=== PATIENT | female | born 1940 | race American Indian/Alaskan Native ===

== ENCOUNTER 2020-09-20 17:49 | Observation (INO) | payer MEDICARE ==
--- NOTE | 2020-09-20 20:47 | Emergency Department Report ---
ED Neuro Deficit HPI - General Chief Complaint: Dizziness Stated Complaint: DIZZINESS Time Seen by Provider: 09/20/20 20:25 Source: patient Mode of arrival: Ambulatory Limitations: No Limitations - History of Present Illness Initial Comments: Chief complaint: Dizzy HPI: This is an 80-year-old female with history of hypertension and glaucoma who presents with room spinning sensation on Sunday morning. Dizziness has been persistent throughout the day. She has imbalance with walking. She feels as if her neck and head are shaking. When she stands up she feels as if she is going to fall toward the left. No previous history of stroke. During pandemic, patient was evaluated at [facility] for similar symptoms. Due to the commotion of the pandemic, she was unable to obtain the outpatient head CT that was ordered. She felt better after receiving IV fluid therapy. Patient did not take her blood pressure medication on Sunday. She did take her blood pressure medication on yesterday. She took aspirin yesterday after experiencing the room spinning sensation. At time she does not take her blood pressure medications. She is concerned for adverse effect. She does not smoke tobacco. She is retired schoolteacher. She has had mild heada kamari. She denies paralysis or trouble with speech. She denies paresthesias. She denies blurry vision. -: days(s) (Yesterday morning patient awakened with symptoms) Location: ataxia History of same: Yes Place: home Severity: moderate Improves With: none Worsens With: none On Anticoagulants: No Context: other (Patient awakened with symptoms yesterday morning) Associated Symptoms: vertigo, other (Vertigo trouble with walking) - Related Data Allergies/Adverse Reactions: Allergies Allergy/AdvReac Type Severity Reaction Status Date / Time [place] nut Allergy Swelling Verified 09/20/20 18:03 fish derived Allergy Swelling Verified 09/20/20 18:03 ED Review of Systems ROS: Stated complaint: DIZZINESS Other details as noted in HPI Comment: All other systems reviewed and negative Constitutional: denies: fever, malaise Respiratory: denies: cough, shortness of breath Gastrointestinal: denies: abdominal pain, nausea, vomiting Neurological: abnormal gait, vertigo. denies: headache, weakness, numbness, paresthesias, confusion ED Past Medical Hx - Past Medical History Previous Medical History?: Yes Hx Hypertension: Yes Hx Headaches / Migraines: Yes Additional medical history: GLACOMA - Surgical History Past Surgical History?: Yes Additional Surgical History: FINGER - Family History Family history: hypertension, vascular disease (History of CVA among several family members) - Social History Smoking Status: Never Smoker Substance Use Type: None ED Neuro Physical Exam - General Limitations: No Limitations General appearance: alert, in no apparent distress Suspected Stroke: Yes - Head Head exam: Present: atraumatic, normocephalic - Eye Eye exam: Present: normal appearance - ENT ENT exam: Present: mucous membranes moist - Neck Neck exam: Present: normal inspection, full ROM - Respiratory Respiratory exam: Present: normal lung sounds bilaterally. Absent: respiratory distress, wheezes, rales, rhonchi - Cardiovascular Cardiovascular Exam: Present: regular rate, normal rhythm, normal heart sounds. Absent: systolic murmur, diastolic murmur, rubs, gallop - GI/Abdominal GI/Abdominal exam: Present: soft, normal bowel sounds. Absent: distended, tenderness, guarding, rebound - Extremities Exam Extremities exam: Present: normal inspection - Neurological Exam Neurological exam: Present: alert, oriented X3, other (Patient is unable to walk with cane or assistance) - NIHSS Assessment Interval: Baseline 1a. Level of Consciousness: alert/keenly responsive 1b. LOC Questions: answers both correctly 1c. LOC Commands: performs tasks correctly 2. Best Gaze: normal 3. Visual: no visual loss 4. Facial Palsy: normal symmetrical movement 5b. Motor Arm Right: no drift 5a. Motor Arm Left: no drift 6a. Motor Leg Left: no drift 6b. Motor Leg Right: no drift 7. Limb Ataxia: present 2 limbs (Significant dysmetria with [id number]) 8. Sensory: normal 9. Best Language: no aphasia 10. Dysarthria: normal 11. Extinction/Inattention: no abnormality Total Score: 2 Stroke Severity: Minor Stroke - Psychiatric Psychiatric exam: Present: normal affect, normal mood - Skin Skin exam: Present: warm, dry, intact, normal color. Absent: rash ED Course Vital Signs 09/20/20 09/20/20 18:05 20:20 Temperature 99.0 F Pulse Rate 102 H 96 H Respiratory 20 18 Rate Blood Pressure 159/87 Blood Pressure 176/90 [Right] O2 Sat by Pulse 96 99 Oximetry - Lab Data Result diagrams: 09/20/20 20:35 09/20/20 20:35 Lab Results 09/20/20 09/20/20 09/20/20 Range/Units 20:35 20:35 20:35 WBC 12.1 H (4.5-11.0) K/mm3 RBC 4.78 (3.65-5.03) M/mm3 Hgb 13.9 (10.1-14.3) gm/dl Hct 41.3 (30.3-42.9) % MCV 86 (79-97) fl MCH 29 (28-32) pg MCHC 34 (30-34) % RDW 14.4 (13.2-15.2) % Plt Count 188 (140-440) K/mm3 Baso % (Auto) School Standards Coach Lymph # (Auto) School Standards Coach PT 13.4 (12.2-14.9) Sec. INR 1.04 (0.87-1.13) APTT 30.3 (24.2-36.6) Sec. Sodium 137 (137-145) mmol/L Potassium 4.0 (3.6-5.0) mmol/L Chloride 100.6 (98-107) mmol/L Carbon Dioxide 22 (22-30) mmol/L Anion Gap 18 mmol/L BUN 13 (7-17) mg/dL Creatinine 0.8 (0.6-1.2) mg/dL Estimated GFR > 60 ml/min BUN/Creatinine Ratio 16 % Glucose 225 H (65-100) mg/dL Calcium 10.6 H (8.4-10.2) mg/dL Total Bilirubin 0.30 (0.1-1.2) mg/dL AST 18 (5-40) units/L ALT 18 (7-56) units/L Alkaline Phosphatase 81 (35-129) units/L Troponin T < 0.010 (0.00-0.029) ng/mL NT-Pro-B Natriuret Pep (0-900) pg/mL Total Protein 7.4 (6.3-8.2) g/dL Albumin 3.9 (3.9-5) g/dL Albumin/Globulin Ratio 1.1 % 09/20/20 Range/Units 20:35 WBC (4.5-11.0) K/mm3 RBC (3.65-5.03) M/mm3 Hgb (10.1-14.3) gm/dl Hct (30.3-42.9) % MCV (79-97) fl MCH (28-32) pg MCHC (30-34) % RDW (13.2-15.2) % Plt Count (140-440) K/mm3 Baso % (Auto) Lymph # (Auto) PT (12.2-14.9) Sec. INR (0.87-1.13) APTT (24.2-36.6) Sec. Sodium (137-145) mmol/L Potassium (3.6-5.0) mmol/L Chloride (98-107) mmol/L Carbon Dioxide (22-30) mmol/L Anion Gap mmol/L BUN (7-17) mg/dL Creatinine (0.6-1.2) mg/dL Estimated GFR ml/min BUN/Creatinine Ratio % Glucose (65-100) mg/dL Calcium (8.4-10.2) mg/dL Total Bilirubin (0.1-1.2) mg/dL AST (5-40) units/L ALT (7-56) units/L Alkaline Phosphatase (35-129) units/L Troponin T (0.00-0.029) ng/mL NT-Pro-B Natriuret Pep 17.71 (0-900) pg/mL Total Protein (6.3-8.2) g/dL Albumin (3.9-5) g/dL Albumin/Globulin Ratio % - EKG Data -: EKG Interpreted by Sc EKG shows normal: sinus rhythm, axis, intervals, QRS complexes, ST-T waves Rate: normal Interpretation: normal EKG 09/20/20 20:47 EKG obtained 1813 EKG interpreted by vt Normal sinus rhythm normal rate normal axis normal intervals no ST elevation no ST-T signs of ischemia normal EKG - Radiology Data Radiology results: report reviewed Patient Name: RONAK HERRERA Gender: Female Date of : 1940 Referring Provider: SOFÍA NUNN Organization: [facility] Accession Number: [id number] Requested Date: September 20, 2020 20:25 Report Status: Final Requested Procedure: 1 Procedure Description: CT head/brain wo con Modality: CT Findings Reporting MD: Alis Street Dictation Time: September 20, 2020 21:07 Tissue Packer: Not available Career Development Manager Date: NONENHANCED CT SCAN OF THE BRAIN: INDICATION: Stroke symptoms. TECHNIQUE: Routine CT head without contrast. Sagittal and coronal reformatted images were obtained. All CT scans at this location are performed using CT dose reduction for ALARA by means of automated exposure control. COMPARISON: None. FINDINGS: BRAIN / INTRACRANIAL CONTENTS: Hemorrhage: No intracranial hemorrhage; no subarachnoid hemorrhage Stroke mimics: No subdural or epidural hematoma or space taking lesion Acute/subacute territorial infarction: Wilson-white matter interface: No blurring; normal Insular cortex: Normal Basal ganglia: Normal Wedge shaped parenchymal low density area: Not present Cortical sulci: Not effaced Lacunar infarctions: No acute lacunae Vasculopathy: Dense middle cerebral artery sign: Not present Internal carotid artery terminus: Normal Basilar artery: Normal Middle cerebral artery branches in the sylvian fissure (Dot sign): Normal Calcified embolus: Not present ASPECT score: 10 Chronic lesions: Periventricular low-attenuation areas due to chronic small vessel disease; Low-attenuation areas in the putamen bilaterally due to chronic small vessel disease; mild to moderate volume loss in the cerebellar hemispheres Craniocervical junction:No significant abnormality Orbits:No significant abnormality Paranasal sinuses/mastoids:No significant abnormality [facility] [address] , [address] [place] [address] P 280 118 1222 F [phone] [facility] - Report exported on September 20, 2020 21:25:04 -0500 - Page 2 of 2 Additional findings: None IMPRESSION: No cerebral hemorrhage or stroke mimics No acute/subacute ischemic changes This exam was performed as part of a code stroke protocol. The exam was completed at [facility] on 09/20/2020 8:55 PM. The exam was reviewed at 9:00 PM and ER personnel was notified at 9:05 PM. Signer Name: Alis Street MD Signed: 09/20/2020 9:07 PM Workstation Name: [id number] - Medical Decision Making Acute CVA: I have a strong suspicion for acute CVA. Patient has significant dysm etria, ataxia and persistent vertigo. Patient received aspirin therapy in emergency department. Considering time of onset of symptoms of yesterday, TPA, thrombolytic therapy, is not indicated. Critical care attestation.: If time is entered above; I have spent that time in minutes in the direct care of this critically ill patient, excluding procedure time. ED Disposition Clinical Impression: Acute CVA (cerebrovascular accident) Disposition: DC09 OP ADMIT IP TO THIS HOSP Is pt being admited?: Yes Does the pt Need Aspirin: No Condition: Stable
[2020-09-20 20:55] LABS: Hematocrit 41.3 % (30.3-42.9); Hemoglobin 13.9 gm/dl (10.1-14.3); INR 1.04 (0.87-1.13); Mean Corpuscular HGB Conc 34 % (30-34); Mean Corpuscular Volume 86 fl (79-97); Red Blood Count 4.78 M/mm3 (3.65-5.03); Red Cell Distribution Width 14.4 % (13.2-15.2)
[2020-09-20 20:56] LABS: Partial Thromboplastin Time 30.3 Sec. (24.2-36.6); Platelet Count 188 K/mm3 (140-440)
[2020-09-20 21:10] LABS: Alanine Aminotransferase 18 units/L (7-56); Albumin 3.9 g/dL (3.9-5); BUN/Creatinine Ratio 16; Blood Urea Nitrogen 13 mg/dL (7-17); Calcium 10.6 mg/dL (8.4-10.2); Hemolysis Index 31
--- NOTE | 2020-09-20 21:15 | XRay Report ---
CHEST 1 VIEW 09/20/2020 8:46 PM INDICATION / CLINICAL INFORMATION: Stroke. Possible aspiration. Dizziness with nausea for 2 days. COMPARISON: None available. FINDINGS: SUPPORT DEVICES: None. HEART / MEDIASTINUM: No significant abnormality. LUNGS / PLEURA: The lungs are clear with elevation of the left hemidiaphragm. No significant pleural effusion. No pneumothorax. ADDITIONAL FINDINGS: No significant additional findings. IMPRESSION: 1. No acute abnormality of the chest. Signer Name: Alejandro Hernandes MD Signed: 09/20/2020 9:10 PM Workstation Name: [id number]
[2020-09-20] MEDS ORDERED: ASPIRIN 81 MG TAB CHEW PO ONE (21:53)
--- NOTE | 2020-09-20 22:12 | Cat Scan Report ---
NONENHANCED CT SCAN OF THE BRAIN: INDICATION: Stroke symptoms. TECHNIQUE: Routine CT head without contrast. Sagittal and coronal reformatted images were obtained. A ll CT scans at this location are performed using CT dose reduction for ALARA by means of automated ex posure control. COMPARISON: None. FINDINGS: BRAIN / INTRACRANIAL CONTENTS: Hemorrhage: No intracranial hemorrhage; no subarachnoid hemorrhage Stroke mimics: No subdural or epidural hematoma or space taking lesion Acute/subacute territorial infarction: Wilson-white matter interface: No blurring; normal Insular cortex: Normal Basal ganglia: Normal Wedge shaped parenchymal low density area: Not present Cortical sulci: Not effaced Lacunar infarctions: No acute lacunae Vasculopathy: Dense middle cerebral artery sign: Not present Internal carotid artery terminus: Normal Basilar artery: Normal Middle cerebral artery branches in the sylvian fissure (Dot sign): Normal Calcified embolus: Not present ASPECT score: 10 Chronic lesions: Periventricular low-attenuation areas due to chronic small vessel disease; Low-atten uation areas in the putamen bilaterally due to chronic small vessel disease; mild to moderate volume loss in the cerebellar hemispheres Craniocervical junction:No significant abnormality Orbits:No significant abnormality Paranasal sinuses/mastoids:No significant abnormality Additional findings: None IMPRESSION: No cerebral hemorrhage or stroke mimics No acute/subacute ischemic changes This exam was performed as part of a code stroke protocol. The exam was completed at [facility] on 09/20/2020 8:55 PM. The exam was reviewed at 9:00 PM and ER personnel was notifie d at 9:05 PM. Signer Name: Alis Street MD Signed: 09/20/2020 10:07 PM Workstation Name: [id number]
[2020-09-20 22:48] LABS: Giant Platelets Rare; Platelet Clumps Rare; RBC Morphology Normal; Total Cells Counted 100
[2020-09-20] MEDS ORDERED: ALUM-MAG HYDROXIDE-SIMETHICONE 200-200-20MG/5ML ORAL LIQD 30 ML PO PRN (22:52)
[2020-09-20] MEDS ORDERED: SENNOSIDES 8.6 MG TAB PO PRN (22:52)
[2020-09-20] MEDS ORDERED: MAGNESIUM HYDROXIDE (MOM) ORAL LIQD UDC PO PRN (22:52)
[2020-09-20] MEDS ORDERED: ONDANSETRON 4 MG/2 ML INJ IV PRN (22:52)
[2020-09-20] MEDS ORDERED: ACETAMINOPHEN 325 MG TAB PO PRN (22:52)
[2020-09-20] MEDS ORDERED: hydrALAZINE 20 MG/1 ML INJ IV PRN (22:54)
--- NOTE | 2020-09-20 22:59 | History and Physical Report ---
History of Present Illness Date of examination: 09/20/20 Date of admission: 09/20/20 22:09 Chief complaint: dizziness History of present illness: HPI: This is an 80-year-old female with history of hypertension and glaucoma who presents with room spinning sensation on Sunday morning. Dizziness has been persistent throughout the day. She has imbalance with walking. She feels as if her neck and head are shaking. When she stands up she feels as if she is going to fall toward the left. No previous history of stroke. During pandemic, patient was evaluated at [facility] for similar symptoms. Due to the commotion of the pandemic, she was unable to obtain the outpatient head CT that was ordered. She felt better after receiving IV fluid therapy. CT scan of the brain done to rule out acute stroke showed no significant finding. Chest x-ray done also no acute abnormality noted ED work-up shows WBC 12.1 and platelets 188 hemoglobin 13.9 sodium 137 potassium 4.0, creatinine 0.8 glucose 225 calcium 10.6 troponin is negative BNP 17.7. Patient seen in ED at bedside alert and oriented x3 patient denies chest pain nausea vomiting. Patient has past medical history of hypertension and on home medication for blood pressure. Past History Past Medical History: diabetes, hypertension Past Surgical History: No surgical history Social history: no significant social history Family history: hypertension Medications and Allergies Allergies Allergy/AdvReac Type Severity Reaction Status Date / Time [place] nut Allergy Swelling Verified 09/20/20 18:03 fish derived Allergy Swelling Verified 09/20/20 18:03 Review of Systems Constitutional: fatigue, weakness Ears, nose, mouth and throat: no epistaxis, no bleeding gums Breasts: no skin changes Cardiovascular: no chest pain Respiratory: no dyspnea on exertion, no congestion Gastrointestinal: no nausea, no vomiting Rectal: no hemorrhoids Musculoskeletal: muscle weakness Integumentary: no rash, no pruritis Neurological: vertigo, no head injury Psychiatric: no hallucinations Hematologic/Lymphatic: no easy bruising, no easy bleeding Allergic/Immunologic: no urticaria Exam - Constitutional Vitals: Temp Pulse Resp BP Pulse Ox 99.0 F 96 H 18 176/90 99 09/20/20 18:05 09/20/20 20:20 09/20/20 20:20 09/20/20 20:20 09/20/20 20:20 General appearance: Present: mild distress, well-nourished - EENT Eyes: Present: PERRL ENT: hearing intact, clear oral mucosa - Neck Neck: Present: supple, normal ROM - Respiratory Respiratory effort: normal Respiratory: bilateral: CTA - Cardiovascular Heart rate: 94 Heart Sounds: Present: S1 & S2. Absent: rub, click - Extremities Extremities: pulses symmetrical, No edema Peripheral Pulses: within normal limits - Abdominal General gastrointestinal: Present: soft, non-tender, non-distended, normal bowel sounds Female genitourinary: Present: normal - Integumentary Integumentary: Present: clear, warm, dry - Musculoskeletal Musculoskeletal: gait normal, strength equal bilaterally - Psychiatric Psychiatric: appropriate mood/affect, intact judgment & insight, cooperative - Neurologic Neurologic: CNII-XII intact, moves all extremities - Allied Health Allied health notes reviewed: nursing HEART Score - HEART Score Troponin: Troponin T < 0.010 ng/mL (0.00-0.029) 09/20/20 20:35 Results - Labs CBC & Chem 7: 09/20/20 20:35 09/20/20 20:35 Labs: Abnormal lab results 09/20/20 09/20/20 Range/Units 20:35 20:35 WBC 12.1 H (4.5-11.0) K/mm3 Lymphocytes % (Manual) 38.0 H (13.4-35.0) % Glucose 225 H (65-100) mg/dL Calcium 10.6 H (8.4-10.2) mg/dL Assessment and Plan - Patient Problems (1) Acute CVA (cerebrovascular accident) Current Visit: Yes Status: Acute Plan to address problem: Safety and fall precaution at all times PT OT consult CT of the head showed no acute finding CTA head and neck and MRI of the brain ordered Continue aspirin and statin (2) Essential hypertension Current Visit: Yes Status: Acute Plan to address problem: Monitor blood pressure Resume home antihypertensive As needed hydralazine (3) Hyperglycemia Current Visit: Yes Status: Acute Plan to address problem: Blood sugar elevated on admission patient denies history of diabetes monitor blood sugar with sliding scale Check hemoglobin A1c (4) Leukocytosis Current Visit: Yes Status: Acute Plan to address problem: Questionable cause-likely reactive Patient had no sign or symptom of sepsis Monitor WBC, monitor vital signs and temperature (5) DVT prophylaxis Current Visit: Yes Status: Acute Plan to address problem: SCD
[2020-09-20] MEDS ORDERED: hydrALAZINE 25 MG TAB PO SCH (23:00)
[2020-09-20] MEDS: METOPROLOL TARTRATE 50 MG TAB PO SCH (23:41)
[2020-09-20] MEDS: FAMOTIDINE 20 MG/2 ML INJ IV SCH (23:45)
[2020-09-21] MEDS: SODIUM CHLORIDE 0.9% 1000 ML 1,000 ML IV SCH ×2 (02:19→21:55)
[2020-09-21] MEDS: INSULIN LISPRO 100 UNIT/ML SUB-Q SCH ×3 (08:00→17:28)
--- NOTE | 2020-09-21 10:41 | Electrocardiograph Report ---
[facility] Test Date: 2020-09-20 Test Time: 18:14:47 Pat Name: RONAK HERRERA Department: Room: A478 1 Gender: F Client Service Manager: ALEJANDRA : 1940 Requested By: SOFÍA NUNN Order Number: [id number] Reading MD: Kaya Degroot Measurements Intervals [place] Rate: 94 P: 62 KS: 143 QRS: 6 QRSD: 81 T: 23 QT: 344 QTc: 430 Interpretive Statements Sinus rhythm Possible old inferior myocardial infarction No previous ECG available for comparison Electronically Signed On 09-21-2020 10:41:14 EDT by Kaya Degroot
[2020-09-21] MEDS: FAMOTIDINE 20 MG/2 ML INJ IV SCH ×2 (10:57→21:57)
[2020-09-21] MEDS: amLODIPine 10 MG TAB PO SCH (10:57)
[2020-09-21] MEDS: METOPROLOL TARTRATE 50 MG TAB PO SCH ×2 (10:57→21:56)
--- NOTE | 2020-09-21 12:22 | Consultation ---
History of Present Illness Consult date: 09/21/20 Reason for Consult: Diziness History of present illness: dizziness History of present illness: HPI: This is an 80-year-old female with history of hypertension and glaucoma who presents with room spinning sensation on Sunday morning. Dizziness has been persistent throughout the day. She has imbalance with walking. She feels as if her neck and head are shaking. When she stands up she feels as if she is going to fall toward the left. No previous history of stroke. During pandemic, patient was evaluated at [facility] for similar symptoms. Due to the commotion of the pandemic, she was unable to obtain the outpatient head CT that was ordered. She felt better after receiving IV fluid therapy. CT scan of the brain done to rule out acute stroke showed no significant finding. Chest x-ray done also no acute abnormality noted ED work-up shows WBC 12.1 and platelets 188 hemoglobin 13.9 sodium 137 potassium 4.0, creatinine 0.8 glucose 225 calcium 10.6 troponin is negative BNP 17.7. Patient seen in ED at bedside alert and oriented x3 patient denies chest pain nausea vomiting. Patient has past medical history of hypertension and on home medication for blood pressure. she refused MRI !!! Past History Past Medical History: diabetes, hypertension Past Surgical History: No surgical history Social history: no significant social history Family history: hypertension Medications and Allergies Allergies Allergy/AdvReac Type Severity Reaction Status Date / Time [place] nut Allergy Swelling Verified 09/20/20 18:03 fish derived Allergy Swelling Verified 09/20/20 18:03 Review of Systems Constitutional: fatigue, weakness Ears, nose, mouth and throat: no epistaxis, no bleeding gums Breasts: no skin changes Cardiovascular: no chest pain Respiratory: no dyspnea on exertion, no congestion Gastrointestinal: no nausea, no vomiting Rectal: no hemorrhoids Musculoskeletal: muscle weakness Integumentary: no rash, no pruritis Neurological: vertigo, no head injury Psychiatric: no hallucinations Hematologic/Lymphatic: no easy bruising, no easy bleeding Allergic/Immunologic: no urticaria Past History Past Medical History: diabetes, hypertension Past Surgical History: No surgical history Social history: no significant social history Family history: hypertension Medications and Allergies Allergies Allergy/AdvReac Type Severity Reaction Status Date / Time [place] nut Allergy Swelling Verified 09/20/20 18:03 fish derived Allergy Swelling Verified 09/20/20 18:03 Active Meds: Active Medications Acetaminophen (Acetaminophen 325 Mg Tab) 650 mg PO Q4H PRN PRN Reason: Pain MILD(1-3)/Fever >100.5/STREET Al Hydrox/Mg Hydrox/Simethicone (Alum-Mag Hydroxide-Simethicone [id number]/5ml Oral Liqd 30 Ml) 30 ml PO Q4H PRN PRN Reason: Indigestion Amlodipine Besylate (Amlodipine 10 Mg Tab) 10 mg PO QDAY [facility] Last Admin: 09/21/20 10:57 Dose: 10 mg Documented by: Atorvastatin Calcium (Atorvastatin 40 Mg Tab) 40 mg PO QHS [facility] Famotidine (Famotidine 20 Mg/2 Ml Inj) 20 mg IV BID [facility] Last Admin: 09/21/20 10:57 Dose: 20 mg Documented by: Hydralazine HCl (Hydralazine 20 Mg/1 Ml Inj) 5 mg IV Q4HR PRN PRN Reason: SBP >/=170; DBP >/=100 Sodium Chloride (Nacl 0.9% 1000 Ml) 1,000 mls @ 75 mls/hr IV DIRECT [facility] Last Admin: 09/21/20 02:19 Dose: 75 mls/hr Documented by: Insulin Human Lispro (Insulin Lispro 100 Unit/Ml) 0 unit SUB-Q AC [facility]; Protocol Last Admin: 09/21/20 08:00 Dose: Not Given Documented by: Magnesium Hydroxide (Magnesium Hydroxide (Mom) Oral Liqd Udc) 30 ml PO Q4H PRN PRN Reason: Constipation Metoprolol Tartrate (Metoprolol Tartrate 50 Mg Tab) 50 mg PO BID [facility] Last Admin: 09/21/20 10:57 Dose: 50 mg Documented by: Ondansetron HCl (Ondansetron 4 Mg/2 Ml Inj) 4 mg IV Q8H PRN PRN Reason: Nausea And Vomiting Senna (Sennosides 8.6 Mg Tab) 8.6 mg PO Q12HR PRN PRN Reason: Constipation Physical Examination - Vital Signs Vital Signs: Vital Signs Temp Pulse Resp BP Pulse Ox 99.0 F 102 H 20 159/87 96 09/20/20 18:05 09/20/20 18:05 09/20/20 18:05 09/20/20 18:05 09/20/20 18:05 - Constitutional General appearance: comfortable - EENT EENT: Present: PERRL, mucous membranes moist - Respiratory Respiratory: Present: chest non-tender, lungs clear - Cardiovascular Cardiovascular: Present: regular rate, normal S1, normal S2 Extremities: Present: no peripheral edema bilatateraly - Gastrointestinal Gastrointestinal: Present: normoactive bowel sounds - Integumentary Integumentary: Present: normal - Neurologic Cranial nerve examination: PERRL, EOMI, V1/V2/V3 grossly intact, face symmetric, tongue midline, intact Speech examination: intact Sensorimotor examination: intact Detailed motor examination: grossly full strength in Cerebellar examination: other (intact , walking not done) Results - Laboratory Findings CBC and BMP: 09/20/20 20:35 09/20/20 20:35 Abnormal Lab Findings: Abnormal Labs 09/20/20 09/20/20 09/20/20 20:35 20:35 20:35 WBC 12.1 H Lymphocytes % (Manual) 38.0 H Glucose 225 H POC Glucose Hemoglobin A1c 6.9 H Calcium 10.6 H 09/21/20 08:20 WBC Lymphocytes % (Manual) Glucose POC Glucose 140 H Hemoglobin A1c Calcium Assessment and Plan Assessment and Plan - Patient Problems # Acute CVA (cerebrovascular accident) vs benign vertigo Safety and fall precaution at all times PT OT consult CT of the head showed no acute finding CTA head and neck and MRI of the brain ordered Continue aspirin and statin send for orthostatic changes (2) Essential hypertension Monitor blood pressure Resume home antihypertensive As needed hydralazine (3) Hyperglycemia Blood sugar elevated on admission patient denies history of diabetes monitor blood sugar with sliding scale Check hemoglobin A1c (4) Leukocytosis Questionable cause-likely reactive Patient had no sign or symptom of sepsis Monitor WBC, monitor vital signs and temperature (5) DVT prophylaxis SCD plan 1- DW pt she agreed to have MRI 2-check for orthostatic changes 3- pt therapy 4-echo will follow
[2020-09-21] MEDS: ASPIRIN EC 325 MG TAB PO SCH ×2 (13:58→15:15)
--- NOTE | 2020-09-21 15:55 | Progress Note ---
Assessment and Plan (1) possible Acute CVA (cerebrovascular accident) Current Visit: Yes Status: Acute Plan to address problem: Safety and fall precaution at all times PT OT consult CT of the head showed no acute finding CTA head and neck and MRI of the brain ordered Continue aspirin and statin (2) Essential hypertension Current Visit: Yes Status: Acute Plan to address problem: Monitor blood pressure Resume home antihypertensive As needed hydralazine (3) Hyperglycemia Current Visit: Yes Status: Acute Plan to address problem: Blood sugar elevated on admission patient denies history of diabetes monitor blood sugar with sliding scale Check hemoglobin A1c (4) Leukocytosis Current Visit: Yes Status: Acute Plan to address problem: Questionable cause-likely reactive Patient had no sign or symptom of sepsis Monitor WBC, monitor vital signs and temperature (5) DVT prophylaxis Current Visit: Yes Status: Acute Plan to address problem: SCD Daily clinical course: 09/21/20: Patient refused MRI in the morning but now she wants to get it done after having discussion with the neurologist.-2D echocardiogram carotid Doppler is pending. Consulted physical therapy -evaluation pending. Getting 2D echo done at the bedside. Continue to follow clinically. If patient remains stable and work-up completed most likely patient might go home tomorrow after PT clearance. Subjective Date of service: 09/21/20 Interval history: Patient seen and examined. Medical records and medication list reviewed. No acute event overnight noted by the RN. Patient denies any chest pain or difficulty breathing. Patient is tolerating diet. Discussed plan of care at bedside with patient. Objective - Exam Narrative Exam: GENERAL: well-developed and elderly -[place]er female lying on bed appeared to be in no discomfort. HEENT: Normocephalic. Atraumatic. No conjunctival congestion or icterus. Patient has moist mucous membranes. NECK: Supple. Trachea midline. CHEST/LUNGS: Clear to auscultated bilaterally, breathing nonlabored. No wheezes crackles or rhonchi. HEART/CARDIOVASCULAR: Regular in rate and rhythm. S1 and S2 positive. ABDOMEN: Abdomen is soft, nontender. Patient has normal bowel sounds. SKIN: There is no rash. Warm and dry. NEURO: No focal motor deficit. Follows command. MUSCULOSKELETAL: No joint effusion or tenderness. EXTRIMITY: No edema, no cyanosis or clubbing. PSYCH: Cooperative. - Constitutional Vitals: Vital Signs - 12hr 0509/21/20 09/21/20 03:56 08:02 08:20 Temperature 97.8 F 98.0 F Pulse Rate 80 82 Respiratory 14 18 Rate Blood Pressure 151/70 146/76 O2 Sat by Pulse 94 96 98 Oximetry 09/21/20 10:57 Temperature Pulse Rate 82 Respiratory Rate Blood Pressure 146/76 O2 Sat by Pulse Oximetry - Labs CBC & Chem 7: 09/20/20 20:35 09/20/20 20:35 Labs: Abnormal lab results 09/20/20 09/20/20 09/20/20 Range/Units 20:35 20:35 20:35 WBC 12.1 H (4.5-11.0) K/mm3 Lymphocytes % (Manual) 38.0 H (13.4-35.0) % Glucose 225 H (65-100) mg/dL POC Glucose (70-105) mg/dL Hemoglobin A1c 6.9 H (4-6) % Calcium 10.6 H (8.4-10.2) mg/dL 09/21/20 09/21/20 Range/Units 08:20 12:11 WBC (4.5-11.0) K/mm3 Lymphocytes % (Manual) (13.4-35.0) % Glucose (65-100) mg/dL POC Glucose 140 H 199 H (70-105) mg/dL Hemoglobin A1c (4-6) % Calcium (8.4-10.2) mg/dL HEART Score - HEART Score Troponin: Troponin T < 0.010 ng/mL (0.00-0.029) 09/20/20 20:35
[2020-09-21 18:29] LABS: Bilirubin,Urine NEG (Negative); Blood,Urine NEG (Negative); Color,Urine Yellow (Yellow); Mucus,Urine FEW /HPF; Protein,Urine <15 mg/dL mg/dL (Negative)
[2020-09-22 01:52] LABS: Chol/HDL Ratio 5.14 %
[2020-09-22] MEDS: INSULIN LISPRO 100 UNIT/ML SUB-Q SCH ×3 (08:33→17:30)
[2020-09-22] MEDS: ASPIRIN EC 325 MG TAB PO SCH (09:41)
[2020-09-22] MEDS: amLODIPine 10 MG TAB PO SCH (09:41)
[2020-09-22] MEDS: METOPROLOL TARTRATE 50 MG TAB PO SCH (09:42)
[2020-09-22] MEDS ORDERED: FAMOTIDINE 20 MG TAB PO SCH (10:00)
--- NOTE | 2020-09-22 12:09 | Progress Note ---
Assessment and Plan Assessment and Plan - Patient Problems # Acute CVA (cerebrovascular accident) vs benign vertigo Safety and fall precaution at all times PT OT consult CT of the head showed no acute finding CTA head and neck and MRI of the brain ordered-- pt. refused MRI/CTA again Continue aspirin and statin send for orthostatic changes not done (2) Essential hypertension Monitor blood pressure Resume home antihypertensive As needed hydralazine (3) Hyperglycemia Blood sugar elevated on admission patient denies history of diabetes monitor blood sugar with sliding scale Check hemoglobin A1c (4) Leukocytosis Questionable cause-likely reactive Patient had no sign or symptom of sepsis Monitor WBC, monitor vital signs and temperature (5) DVT prophylaxis SCD plan 1- MRI is refused again by the pt. as well as CTA 2-check for orthostatic changes!!! 3- pt therapy 4-echo is noted 5- meclizine prn 6- US carotid ? will sign off Subjective Date of service: 09/22/20 Principal diagnosis: dizziness Interval history: doing well no dizziness echo is done 60-65%#EF again refused MRI and CTA brain and neck Objective - Vital Sign Vital Signs - 12hr 09/22/20 09/22/20 09/22/20 03:43 04:00 08:32 Temperature 98.0 F 98.0 F Pulse Rate 72 74 77 Pulse Rate [ Radial] Respiratory 15 18 Rate Blood Pressure 152/68 145/70 O2 Sat by Pulse 98 94 Oximetry 09/22/20 09/22/20 09/22/20 09:41 09:42 10:00 Temperature Pulse Rate 84 84 Pulse Rate [ 67 Radial] Respiratory 19 Rate Blood Pressure 157/65 157/65 O2 Sat by Pulse Oximetry 09/22/20 10:09 Temperature Pulse Rate 67 Pulse Rate [ Radial] Respiratory Rate Blood Pressure O2 Sat by Pulse Oximetry - General Apperance Constitutional: comfortable - EENT EENT: PERRL, mucous membranes moist - Respiratory Respiratory: chest non-tender, lungs clear, rhonchi - Cardiovascular Cardiovascular: regular rate, normal S1, normal S2 Extremities: no peripheral edema bilat - Gastrointestinal Gastrointestinal: normoactive bowel sounds - Integumentary Integumentary: normal - Neurologic Cranial nerve examination: PERRL, EOMI, intact Speech examination: intact Detailed motor examination: grossly full strength in, other - Laboratory Findings CBC and BMP: 09/20/20 20:35 09/20/20 20:35 Abnormal Lab Findings: Abnormal Labs 09/20/20 09/20/20 09/20/20 20:35 20:35 20:35 WBC 12.1 H Lymphocytes % (Manual) 38.0 H Glucose 225 H POC Glucose Hemoglobin A1c 6.9 H Calcium 10.6 H Triglycerides Cholesterol Urine WBC (Auto) 09/21/20 09/21/20 09/21/20 08:20 12:11 17:52 WBC Lymphocytes % (Manual) Glucose POC Glucose 140 H 199 H Hemoglobin A1c Calcium Triglycerides Cholesterol Urine WBC (Auto) 7.0 H 09/21/20 20:35 WBC Lymphocytes % (Manual) Glucose POC Glucose Hemoglobin A1c Calcium Triglycerides 346 H Cholesterol 211 H Urine WBC (Auto)
[2020-09-22 13:05] VITALS: BP 147/87
--- NOTE | 2020-09-22 15:11 | Discharge Summary ---
Providers - Providers Date of Admission: 09/20/20 22:09 Date of discharge: 09/22/20 Attending physician: KATHLEEN HARE 09/21/20 02:01 Occupational Therapy Evaluate and Treat [CONS] Stat Comment: Reason For Exam: cva Physical Therapy Evaluation and Treat [CONS] Stat Comment: Reason For Exam: cva 09/21/20 10:51 Consult to Physician [CONS] Routine Comment: Consulting Provider: ANA RENEE Physician Instructions: Reason For Exam: possible CVA Primary care physician: [employer] Hospitalization Condition: Stable Pertinent studies: Chest x-ray, head CT, carotid Doppler, 2D echocardiogram Hospital course: This is an 80-year-old female with history of hypertension and glaucoma who presented to the ER with room spinning sensation on Sunday morning which has been persistent throughout the day along with imbalance with walking. She felt better after receiving IV fluid therapy. CT scan of the brain done to rule out acute stroke showed no significant finding. Chest x-ray done also no acute abnormality noted. ED work-up shows WBC 12.1 and platelets 188 hemoglobin 13.9 sodium 137 potassium 4.0, creatinine 0.8 glucose 225 calcium 10.6 troponin is negative BNP 17.7. Patient seen in ED at bedside alert and oriented x3 patient denies chest pain nausea vomiting. neurology was consulted and recommended MRI brain, CTA head/neck, but patient refused both test even after extensive counseling. 2D echo showed preserved EF, carotid Doppler showed tortuous internal carotid artery but no stenosis. Patient was evaluated by physical therapy and no additional services recommended. Patient was then discharged home in stable condition. She was recommended for brain MRI as outpt. Patient was then discharged home in stable condition with outpt f/u. Disposition: - TO HOME OR SELFCARE Final Discharge Diagnosis (Prints w/discharge instructions): -- Acute CVA (cerebrovascular accident) vs benign vertigo: Patient refused MRI. -- Essential hypertension. --DM type 2 with hyperglycemia, dietary restriction recommended. --Leukocytosis, likely reactive, Patient had no sign or symptom of sepsis Time spent for discharge: 34 minutes Core Measure Documentation - Palliative Care Palliative Care/ Comfort Measures: Not Applicable - Core Measures Any of the following diagnoses?: none Exam - Physical Exam Narrative exam: GENERAL: well-developed and elderly -[place] female lying on bed appeared to be in no discomfort. HEENT: Normocephalic. Atraumatic. No conjunctival congestion or icterus. Patient has moist mucous membranes. NECK: Supple. Trachea midline. CHEST/LUNGS: Clear to auscultated bilaterally, breathing nonlabored. No wheezes crackles or rhonchi. HEART/CARDIOVASCULAR: Regular in rate and rhythm. S1 and S2 positive. ABDOMEN: Abdomen is soft, nontender. Patient has normal bowel sounds. SKIN: There is no rash. Warm and dry. NEURO: No focal motor deficit. Follows command. MUSCULOSKELETAL: No joint effusion or tenderness. EXTRIMITY: No edema, no cyanosis or clubbing. PSYCH: Cooperative. - Constitutional Vitals: Temp Pulse Resp BP Pulse Ox 98.2 F 93 H 19 147/87 100 09/22/20 11:30 09/22/20 12:00 09/22/20 11:30 09/22/20 11:30 09/22/20 11:30 Plan Activity: advance as tolerated Weight Bearing Status: Weight Bear as Tolerated Diet: low fat, low salt Additional Instructions: Please consider doing MRI of brain without contrast as outpatient. Follow up with: PRIMARY MD SOSA [Primary Care Provider] - 7 Days YAJAIRA HI MD [Staff Physician] - 7 Days Prescriptions: AtorvaSTATin [Lipitor] 40 mg PO QHS #30 tablet Aspirin [Aspirin BABY CHEW TAB] 81 mg PO QDAY #30 tab.chew Metoprolol [Lopressor TAB] 50 mg PO BID #60 tablet
--- NOTE | 2020-09-22 17:25 | Vascular Lab Report ---
VL carotid duplex BILAT INDICATION / CLINICAL INFORMATION: cva. COMPARISON: None available. FINDINGS: Both internal carotids are quite tortuous. There is minimal plaque formation at the bifurcations. Velocity measurements and waveform analysis indicate less than 50% stenosis of each internal carotid artery, according to NASCET criteria. Normal antegrade flow is demonstrated in both vertebral arteries. IMPRESSION: 1. Tortuous internal carotid arteries, but no hemodynamically significant stenosis. Signer Name: Xu Vizcaino MD Signed: 09/22/2020 5:20 PM Workstation Name: [id number]
== END 2020-09-22 17:57 | disposition home or self-care (01) ==
LOC: ED 17:49 → 4A 22:09
PROVIDERS: ADMIT Hospitalist; ATTEND Internal Medicine
DX: I63.9 Cerebral infarction, unspecified (principal); E11.65 Type 2 diabetes mellitus with hyperglycemia; I10 Essential (primary) hypertension; D72.829 Elevated white blood cell count, unspecified; G43.909 Migraine, unspecified, not intractable, without status migrainosus; Z79.899 Other long term (current) drug therapy; Z91.018 Allergy to other foods; Z91.013 Allergy to seafood
CPT/HCPCS: 36415; 70450; 71045; 80053; 80061; 81001; 82962; 83036; 83880; 84484; 85007; 85025; 85610; 85730; 93005; 93306; 93880; 96361; 96374; 97161; 97166; 99285; G0378; J7030

== ENCOUNTER 2021-01-15 15:58 | Emergency (ER) | payer MEDICARE ==
[2021-01-15 16:07] VITALS: BP 132/50
--- NOTE | 2021-01-15 16:59 | Emergency Department Report ---
ED Fall HPI - General Chief Complaint: Dizziness Stated Complaint: CVA SYMPTOMS DIZZINESS Time Seen by Provider: 01/15/21 16:18 Source: patient Mode of arrival: Ambulatory - History of Present Illness Initial Comments: Patient is a 80 years old female with history of hypertension and a recent diagnosis in August for stroke work-up that came back negative. Patient presented to the ER today stating that she was chasing a flying creature in her home and she fell and hit her head with a bathtub. Patient stated that since then she has been having headache, dizziness not feeling well. Patient denied any symptoms prior to the fall. Patient denied any chest pain, shortness of breath, abdominal pain, nausea or vomiting. Stroke scale is 0. MD Complaint: fall -: Sudden, This morning Fall From: standing Fall Witnessed: yes, by family Place Fall Occurred: home Loss of Consciousness: none Prolonged Down Time?: no Symptoms Prior to Fall: none Location: head Associated Symptoms: headache, lightheaded - Related Data Home Medications Medication Instructions Recorded Confirmed Last Taken Alphagan P 0.1% 0.1 units OP ONCE 09/22/20 09/22/20 09/22/20 13:34 Travatan Z 0.25 mg PO ONCE 09/22/20 09/22/20 09/22/20 13:32 amLODIPine 10 mg PO ONCE 09/22/20 09/22/20 09/21/20 Previous Rx's Medication Instructions Recorded Last Taken Type Aspirin [Aspirin BABY CHEW TAB] 81 mg PO QDAY #30 tab.chew 09/22/20 Unknown Rx AtorvaSTATin [Lipitor] 40 mg PO QHS #30 tablet 09/22/20 Unknown Rx Metoprolol [Lopressor TAB] 50 mg PO BID #60 tablet 09/22/20 Unknown Rx Allergies Allergy/AdvReac Type Severity Reaction Status Date / Time Goltry nut Allergy Swelling Verified 09/20/20 18:03 fish derived Allergy Swelling Verified 09/20/20 18:03 ED Review of Systems ROS: Stated complaint: CVA SYMPTOMS DIZZINESS Other details as noted in HPI Comment: All other systems reviewed and negative Constitutional: denies: chills, fever Respiratory: denies: cough, shortness of breath, SOB with exertion Cardiovascular: denies: chest pain, palpitations Gastrointestinal: denies: abdominal pain, nausea, vomiting, diarrhea Musculoskeletal: denies: back pain Neurological: headache, vertigo. denies: weakness, numbness, paresthesias, confusion, abnormal gait ED Past Medical Hx - Past Medical History Previous Medical History?: Yes Hx Hypertension: Yes Hx Diabetes: Yes Hx Headaches / Migraines: Yes Additional medical history: GLACOMA - Surgical History Past Surgical History?: Yes Additional Surgical History: FINGER - Social History Smoking Status: Never Smoker - Medications Home Medications: Home Medications Medication Instructions Recorded Confirmed Last Taken Type Alphagan P 0.1% 0.1 units OP ONCE 09/22/20 09/22/20 09/22/20 13:34 History Aspirin [Aspirin BABY CHEW TAB] 81 mg PO QDAY #30 tab.chew 09/22/20 Unknown Rx AtorvaSTATin [Lipitor] 40 mg PO QHS #30 tablet 09/22/20 Unknown Rx Metoprolol [Lopressor TAB] 50 mg PO BID #60 tablet 09/22/20 Unknown Rx Travatan Z 0.25 mg PO ONCE 09/22/20 09/22/20 09/22/20 13:32 History amLODIPine 10 mg PO ONCE 09/22/20 09/22/20 09/21/20 History ED Physical Exam - General Limitations: No Limitations General appearance: alert, in no apparent distress - Head Head exam: Present: atraumatic, normocephalic, normal inspection - Eye Eye exam: Present: normal appearance, PERRL - ENT ENT exam: Present: normal exam, normal orophraynx, mucous membranes moist - Neck Neck exam: Present: normal inspection, full ROM. Absent: tenderness, meningismus, lymphadenopathy, thyromegaly - Respiratory Respiratory exam: Present: normal lung sounds bilaterally - Cardiovascular Cardiovascular Exam: Present: regular rate, normal rhythm, normal heart sounds - GI/Abdominal GI/Abdominal exam: Present: soft, normal bowel sounds. Absent: distended, tenderness, guarding, rebound, rigid, organomegaly, mass, bruit, pulsatile mass, hernia - Extremities Exam Extremities exam: Present: normal inspection, full ROM, normal capillary refill. Absent: tenderness, pedal edema, joint swelling, calf tenderness - Back Exam Back exam: Present: normal inspection, full ROM. Absent: CVA tenderness (R), CVA tenderness (L) - Neurological Exam Neurological exam: Present: alert, oriented X3, CN II-XII intact, normal gait, reflexes normal. Absent: motor sensory deficit - Psychiatric Psychiatric exam: Present: normal mood - Skin Skin exam: Present: warm, dry, intact, normal color ED Course Vital Signs 01/15/21 16:06 Temperature 98.9 F Pulse Rate 78 Respiratory 18 Rate Blood Pressure 132/50 [Right] O2 Sat by Pulse 94 Oximetry ED Medical Decision Making - Lab Data Result diagrams: 01/15/21 17:34 01/15/21 17:34 - EKG Data -: EKG Interpreted by [place] EKG shows normal: sinus rhythm Rate: normal - EKG Data Interpretation: no acute changes - Radiology Data Radiology results: report reviewed - Medical Decision Making Patient is a 80 years old female with history of hypertension and a recent diagnosis in August for stroke work-up that came back negative. Patient presented to the ER today stating that she was chasing a flying creature in her home and she fell and hit her head with a bathtub. Patient stated that since then she has been having headache, dizziness not feeling well. Patient denied any symptoms prior to the fall. Patient denied any chest pain, shortness of breath, abdominal pain, nausea or vomiting. Stroke scale is 0. Labs reviewed and is unremarkable except for mild leukocytosis. Patient denied any cough, shortness of breath, urinary symptoms. CT brain is unremarkable. Patient observed in the ER for few hours with no signs of a stroke. Patient gi luis a printout of head injury and advised to follow-up with her primary doctor in the next 2 to 3 days and to return to the ER if she develop any new symptoms. Critical care attestation.: If time is entered above; I have spent that time in minutes in the direct care of this critically ill patient, excluding procedure time. ED Disposition Clinical Impression: Fall, Head injury, Dizziness Disposition: 01 HOME / SELF CARE / HOMELESS Is pt being admited?: No Condition: Stable Instructions: Dizziness, [id number], Fall Prevention in the Home, Adult, Head Injury, Adult Referrals: PRIMARY CARE, [Referring] - 3-5 Days
--- NOTE | 2021-01-15 17:37 | Cat Scan Report ---
CT head/brain wo con INDICATION / CLINICAL INFORMATION: 80 years Female; Lightheadedness/Dizziness after a fall. TECHNIQUE: Routine CT head without contrast. All CT scans at this location are performed using CT dos e reduction for ALARA by means of automated exposure control. COMPARISON: 09/20/2020 FINDINGS: BRAIN / INTRACRANIAL CONTENTS: No acute hemorrhage, mass effect, midline shift, hydrocephalus, or acu te, large territorial infarct. Mild to moderate, diffuse cerebral and cerebellar atrophy. There are [id number] areas of decreased attenuation in the white matter of the cerebral hemisph eres, as well as the gangliocapsular regions. These are nonspecific findings and may be related to mi croangiopathy (hypertension, diabetes, atherosclerosis), given the patient's age. It might be difficu lt to evaluate for small areas of ischemia without diffusion imaging by MRI. CRANIOCERVICAL JUNCTION: No significant abnormality. ORBITS: No significant abnormality of visualized orbits. SINUSES / MASTOIDS: Visualized paranasal sinuses and mastoid air cells are essentially clear. ADDITIONAL FINDINGS: Atherosclerotic disease is seen in the anterior and posterior circulation. IMPRESSION: 1. No focal mass, hemorrhage, hydrocephalus, or acute, large territorial infarct. Follow-up with diff usion imaging by MRI, as clinically warranted. Signer Name: Dayday Grullon MD, III Signed: 01/15/2021 5:32 PM Workstation Name: [email or web address]
[2021-01-15 18:01] LABS: BUN/Creatinine Ratio 16; Blood Urea Nitrogen 13 mg/dL (7-17); Calcium 10.6 mg/dL (8.4-10.2); Hemolysis Index 13
[2021-01-15 18:02] LABS: Hematocrit 39.4 % (30.3-42.9); Hemoglobin 13.5 gm/dl (10.1-14.3); Mean Corpuscular HGB Conc 34 % (30-34); Mean Corpuscular Volume 88 fl (79-97); Red Blood Count 4.49 M/mm3 (3.65-5.03); Red Cell Distribution Width 14.5 % (13.2-15.2)
[2021-01-15 18:04] LABS: Alanine Aminotransferase 30 units/L (7-56); Albumin 4.3 g/dL (3.9-5); Platelet Count 165 K/mm3 (140-440)
[2021-01-15 18:05] LABS: Bilirubin,Direct < 0.2 mg/dL (0-0.2); INR 0.89 (0.87-1.13)
[2021-01-15 18:06] LABS: Partial Thromboplastin Time 29.9 Sec. (24.2-36.6)
[2021-01-15 19:03] LABS: Total Cells Counted 100
[2021-01-15 19:04] LABS: Giant Platelets Few; RBC Morphology Normal
== END 2021-01-15 18:54 | disposition home or self-care (01) ==
LOC: ED 15:58
DX: S09.90XA Unspecified injury of head, initial encounter (principal); R42 Dizziness and giddiness; I10 Essential (primary) hypertension; E11.8 Type 2 diabetes mellitus with unspecified complications; G43.909 Migraine, unspecified, not intractable, without status migrainosus; Z98.890 Other specified postprocedural states; Z91.010 Allergy to peanuts; Z91.013 Allergy to seafood; W19.XXXA Unspecified fall, initial encounter; Y93.89 Activity, other specified; Y92.89 Other specified places as the place of occurrence of the external cause; Y99.8 Other external cause status
CPT/HCPCS: 36415; 70450; 80048; 80076; 84484; 85007; 85025; 85610; 85730; 99284